=== PATIENT | female | born 1970 | race Caucasian/White ===

== ENCOUNTER → 2024-01-07 10:47 | Outpatient (BNVA) | payer OTHER, SELFPAY | PROVIDERS: Visit Provider Physician Assistant | DX: S00.81XA Abrasion of other part of head, initial encounter (principal); Y00.XXXA Assault by blunt object, initial encounter | CPT/HCPCS: 99204 ==

== ENCOUNTER → 2024-01-13 10:47 | Outpatient (BNVA) | payer OTHER, SELFPAY | PROVIDERS: Visit Provider Physician Assistant | DX: R51.9 Headache, unspecified (principal); R11.0 Nausea; S00.81XA Abrasion of other part of head, initial encounter; Y00.XXXA Assault by blunt object, initial encounter | CPT/HCPCS: 70450; 99215 ==

== ENCOUNTER → 2024-01-20 10:08 | Outpatient (BNVA) | payer OTHER, SELFPAY | PROVIDERS: Visit Provider Physician Assistant | DX: S00.81XD Abrasion of other part of head, subsequent encounter (principal); Y00.XXXD Assault by blunt object, subsequent encounter | CPT/HCPCS: 99213 ==